=== PATIENT | female | born 1970 | race American Indian/Alaskan Native ===

== ENCOUNTER 2019-05-07 23:13 | Emergency (ER) | payer SELFPAY ==
[2019-05-07 23:27] VITALS: BP 176/98
[2019-05-08] MEDS ORDERED: XYLOCAINE 1% MPF 5 mL INFILTRATI ONE (00:54)
[2019-05-08] MEDS ORDERED: BOOSTRIX IM ONE (00:55)
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
--- NOTE | 2019-05-08 01:26 | XRay Report ---
LEFT LITTLE FINGER 3 VIEWS 0104 INDICATION: laceration proximal 5th finger COMPARISON: None available. FINDINGS: No fractures or dislocations are seen. Mild soft tissue swelling is seen near the proximal interphalangeal joint. No foreign body is seen. No soft tissue gas is noted. Signer Name: Sacha Rahman MD Signed: 05/08/2019 1:21 AM Workstation Name: Molecular Detection-Factor [id number]
== END 2019-05-08 04:55 | disposition home or self-care (01) ==
LOC: ED 23:13
DX: S61.216A Laceration without foreign body of right little finger without damage to nail, initial encounter (principal); Z86.73 Personal history of transient ischemic attack (TIA), and cerebral infarction without residual deficits; Z87.891 Personal history of nicotine dependence; Z79.899 Other long term (current) drug therapy; W25.XXXA Contact with sharp glass, initial encounter; Y93.89 Activity, other specified; Y92.89 Other specified places as the place of occurrence of the external cause; Y99.8 Other external cause status
CPT/HCPCS: 90471; 90715